=== PATIENT | female | born 1940 | race Caucasian/White ===

== ENCOUNTER 2017-05-06 01:16 | Emergency (ER) | payer OTHER ==
[2017-05-06] MEDS: SOD CHLORIDE 0.9% 500 ML IV (01:45)
[2017-05-06] MEDS: morphine 2 MG INJ IV (01:45)
[2017-05-06] MEDS: ONDANSETRON 4 MG INJ IV (01:46)
[2017-05-06 02:12] LABS: ADD MAN DIFF? NO
[2017-05-06 02:15] LABS: BASOPHILS % 0.3 % (0.0-2.0); EOSINOPHILS % 0.1 % (0.0-7.0); HEMATOCRIT 35.2 % (37.0-47.0); HEMOGLOBIN 12.7 g/dl (12.0-16.0); LYMPHOCYTES # 1.5 10^3/ul (0.8-2.9); MEAN CORPUSCULAR HEMOGLOBIN 34.5 pg (29.0-33.0); MEAN CORPUSCULAR HGB CONC 36.1 g/dl (32.0-37.0); MEAN CORPUSCULAR VOLUME 95.7 fl (82.0-101.0); MEAN PLATELET VOLUME 10.9 fl (7.4-10.4); MONOCYTE # 0.7 10^3/ul (0.3-0.9); MONOCYTES % 9.9 % (0.0-11.0); NEUTROPHIL # 4.8 10^3/ul (1.6-7.5); NEUTROPHILS % 68.3 % (39.0-77.0); NUCLEATED RED BLOOD CELLS% 0.3 /100WBC (0.0-0.0); PLATELET COUNT 133 10^3/UL (140-415); RED BLOOD COUNT 3.68 10^6/ul (4.20-5.40); RED CELL DISTRIBUTION WIDTH 13.2 % (11.5-14.5)
[2017-05-06 03:24] LABS: ALANINE AMINOTRANSFERASE 38 IU/L (13-69); ALBUMIN 4.1 g/dl (3.3-4.9); ALBUMIN/GLOBULIN RATIO 1.36; ALKALINE PHOSPHATASE 70 IU/L (42-121); ANION GAP 19 (8-16); ASPARTATE AMINO TRANSFERASE 33 IU/L (15-46); BILIRUBIN,INDIRECT 1.5 mg/dl (0-1.1); BILIRUBIN,TOTAL 1.5 mg/dl (0.2-1.3); BLOOD UREA NITROGEN 6 mg/dl (7-20); CALCIUM 8.5 mg/dl (8.4-10.2); CARBON DIOXIDE 18 mmol/L (21-31); CHLORIDE 95 mmol/L (97-110); CREATININE 0.79 mg/dl (0.44-1.00); GLUCOSE 172 mg/dl (70-220); LIPASE 69 U/L (23-300); POTASSIUM 4.4 mmol/L (3.5-5.1); SODIUM 128 mmol/L (135-144); TOTAL PROTEIN 7.1 g/dl (6.1-8.1)
[2017-05-06 03:34] LABS: TROPONIN-I 0.031 ng/ml (0.00-0.12)
[2017-05-06 04:44] LABS: ADD UMIC YES; UR ASCORBIC ACID NEGATIVE (NEGATIVE); UR BILIRUBIN (Dip) NEGATIVE (NEGATIVE); UR BLOOD (Dip) 2+ mg/dL (NEGATIVE); UR CLARITY SLIGHTLY CLOUDY (CLEAR); UR COLOR YELLOW (YELLOW); UR GLUCOSE (Dip) 1+ mg/dL (NEGATIVE); UR HYALINE CAST FEW /HPF (NONE SEEN); UR KETONES (Dip) TRACE mg/dL (NEGATIVE); UR LEUKOCYTE ESTERASE (Dip) NEGATIVE Leu/ul (NEGATIVE); UR MUCUS FEW /HPF (NONE SEEN); UR NITRITE (Dip) NEGATIVE (NEGATIVE); UR RBC 25 /HPF (0-5); UR SPECIFIC GRAVITY (Dip) 1.017 (1.003-1.030); UR TOTAL PROTEIN (Dip) 2+ mg/dl (NEGATIVE); UR UROBILINOGEN (Dip) 1+ mg/dL (NEGATIVE); UR WBC 1 /HPF (0-5)
[2017-05-06] MEDS: DILTIAZEM 25 MG INJ IV (06:55)
== END 2017-05-06 08:39 | disposition home or self-care (01) ==
LOC: E/R 01:16
DX: R10.84 Generalized abdominal pain (principal); E87.1 Hypo-osmolality and hyponatremia; I10 Essential (primary) hypertension; E11.9 Type 2 diabetes mellitus without complications; Z79.84 Long term (current) use of oral hypoglycemic drugs
CPT/HCPCS: 36415; 71045; 74176; 80053; 81001; 83690; 84484; 85025; 93005; 96374; 96375; 99285-25

== ENCOUNTER 2017-05-07 18:38 | Inpatient (IN) | payer OTHER ==
[2017-05-07 19:10] LABS: ADD MAN DIFF? NO
[2017-05-07] MEDS: DILTIAZEM-D5W 125MG/125ML DRIP 125 ML IV ×2 (19:10→23:42)
[2017-05-07] MEDS: DILTIAZEM 25 MG INJ IV (19:15)
[2017-05-07 19:16] LABS: BASOPHILS % 0.2 % (0.0-2.0); EOSINOPHILS % 0.3 % (0.0-7.0); HEMOGLOBIN 11.8 g/dl (12.0-16.0); LYMPHOCYTES # 1.4 10^3/ul (0.8-2.9); LYMPHOCYTES % 21.3 % (15.0-51.0); MEAN CORPUSCULAR HEMOGLOBIN 33.8 pg (29.0-33.0); MEAN CORPUSCULAR HGB CONC 35.8 g/dl (32.0-37.0); MEAN CORPUSCULAR VOLUME 94.6 fl (82.0-101.0); MEAN PLATELET VOLUME 10.9 fl (7.4-10.4); MONOCYTE # 0.7 10^3/ul (0.3-0.9); MONOCYTES % 10.9 % (0.0-11.0); NEUTROPHIL # 4.3 10^3/ul (1.6-7.5); NEUTROPHILS % 66.8 % (39.0-77.0); NUCLEATED RED BLOOD CELLS% 0.5 /100WBC (0.0-0.0); PLATELET COUNT 127 10^3/UL (140-415); RED BLOOD COUNT 3.49 10^6/ul (4.20-5.40); RED CELL DISTRIBUTION WIDTH 12.8 % (11.5-14.5)
[2017-05-07 19:16] LABS: WHITE BLOOD COUNT 6.4 10^3/ul (4.8-10.8)
[2017-05-07] MEDS: FUROSEMIDE 40 MG INJ IV (19:16)
[2017-05-07 19:33] LABS: ANION GAP 16 (8-16); BLOOD UREA NITROGEN 10 mg/dl (7-20); CALCIUM 8.3 mg/dl (8.4-10.2); CARBON DIOXIDE 20 mmol/L (21-31); CHLORIDE 87 mmol/L (97-110); CREATININE 0.73 mg/dl (0.44-1.00); GLUCOSE 170 mg/dl (70-220); POTASSIUM 3.7 mmol/L (3.5-5.1)
[2017-05-07 19:37] LABS: SODIUM 119 mmol/L (135-144)
[2017-05-07 19:44] LABS: B-TYPE NATRIURETIC PEPTIDE 11900 PG/ML (0-450); TROPONIN-I 0.017 ng/ml (0.00-0.12)
[2017-05-07] MEDS ORDERED: ONDANSETRON 4 MG INJ IV (21:00)
[2017-05-07] MEDS ORDERED: ONDANSETRON 4 MG TAB PO (21:00)
[2017-05-07] MEDS ORDERED: ACETAMINOPHEN 650MG/20.3ML CUP PO (21:00)
[2017-05-07] MEDS: NACL 3% 500 ML IV (21:50)
[2017-05-07] MEDS ORDERED: DEXTROSE 50% 50 ML SYRINGE IV ×2 (22:00)
[2017-05-07] MEDS ORDERED: GLUCOSE GEL 15 GRAM TUBE BUCCAL (22:00)
[2017-05-07] MEDS ORDERED: GLUCOSE GEL 15 GRAM TUBE PO ×2 (22:00)
[2017-05-07] MEDS ORDERED: GLUCAGON 1 MG INJ IM (22:00)
[2017-05-07] MEDS: INSULIN ASPART [NOVOLOG] 3 ML PEN SC (22:29)
[2017-05-07 23:23] LABS: ALBUMIN 3.9 g/dl (3.3-4.9); HEMOGLOBIN A1C 6.1 % (0-5.9)
[2017-05-07 23:24] LABS: ANION GAP 12 (8-16); BLOOD UREA NITROGEN 10 mg/dl (7-20); CALCIUM 8.6 mg/dl (8.4-10.2); CARBON DIOXIDE 27 mmol/L (21-31); CHLORIDE 85 mmol/L (97-110); CREATININE 0.71 mg/dl (0.44-1.00); GLUCOSE 144 mg/dl (70-220); POTASSIUM 3.1 mmol/L (3.5-5.1); SODIUM 121 mmol/L (135-144)
[2017-05-07 23:28] LABS: OSMOLALITY 257 mOsm/kg (280-295)
[2017-05-07] MEDS: POTASSIUM CHLORIDE (SR) 20 MEQ TAB PO (23:42)
[2017-05-08 00:21] LABS: ANION GAP 11 (8-16); BLOOD UREA NITROGEN 10 mg/dl (7-20); CALCIUM 8.6 mg/dl (8.4-10.2); CARBON DIOXIDE 29 mmol/L (21-31); CHLORIDE 85 mmol/L (97-110); CREATININE 0.71 mg/dl (0.44-1.00); GLUCOSE 138 mg/dl (70-220); SODIUM 122 mmol/L (135-144)
[2017-05-08] MEDS: ACCU-CHEK XX (01:07)
[2017-05-08 03:16] LABS: ANION GAP 11 (8-16); BLOOD UREA NITROGEN 10 mg/dl (7-20); CALCIUM 8.2 mg/dl (8.4-10.2); CARBON DIOXIDE 31 mmol/L (21-31); CHLORIDE 87 mmol/L (97-110); CREATININE 0.68 mg/dl (0.44-1.00); GLUCOSE 126 mg/dl (70-220); SODIUM 125 mmol/L (135-144)
[2017-05-08 03:45] LABS: CREATINE KINASE 85 IU/L (23-200)
[2017-05-08 03:59] LABS: CK INDEX 2.1; CK-MB 1.75 ng/ml (0.0-2.4); TROPONIN-I 0.038 ng/ml (0.00-0.12)
[2017-05-08 04:39] LABS: ADD UMIC YES; UR ASCORBIC ACID NEGATIVE (NEGATIVE); UR BACTERIA FEW /HPF (NONE SEEN); UR BILIRUBIN (Dip) NEGATIVE (NEGATIVE); UR BLOOD (Dip) 2+ mg/dL (NEGATIVE); UR CLARITY CLEAR (CLEAR); UR COLOR YELLOW (YELLOW); UR GLUCOSE (Dip) NEGATIVE (NEGATIVE); UR KETONES (Dip) NEGATIVE (NEGATIVE); UR LEUKOCYTE ESTERASE (Dip) NEGATIVE Leu/ul (NEGATIVE); UR NITRITE (Dip) NEGATIVE (NEGATIVE); UR RBC 4 /HPF (0-5); UR SPECIFIC GRAVITY (Dip) 1.006 (1.003-1.030); UR TOTAL PROTEIN (Dip) NEGATIVE (NEGATIVE); UR UROBILINOGEN (Dip) 1+ mg/dL (NEGATIVE); UR WBC 4 /HPF (0-5)
[2017-05-08 05:34] LABS: SODIUM,URINE RANDOM 52 mmol/L (30-90)
[2017-05-08 05:52] LABS: OSMOLALITY,URINE 283 mOsm/kg (250-1200)
[2017-05-08 06:15] LABS: ANION GAP 10 (8-16); BLOOD UREA NITROGEN 9 mg/dl (7-20); CALCIUM 8.2 mg/dl (8.4-10.2); CARBON DIOXIDE 29 mmol/L (21-31); CHLORIDE 88 mmol/L (97-110); CREATININE 0.69 mg/dl (0.44-1.00); GLUCOSE 135 mg/dl (70-220); POTASSIUM 3.5 mmol/L (3.5-5.1); SODIUM 123 mmol/L (135-144)
[2017-05-08 07:00] LABS: ANION GAP 9 (8-16); BLOOD UREA NITROGEN 9 mg/dl (7-20); CALCIUM 8.1 mg/dl (8.4-10.2); CARBON DIOXIDE 30 mmol/L (21-31); CHLORIDE 89 mmol/L (97-110); GLUCOSE 128 mg/dl (70-220); POTASSIUM 3.8 mmol/L (3.5-5.1); SODIUM 124 mmol/L (135-144)
[2017-05-08] MEDS: INSULIN ASPART [NOVOLOG] 3 ML PEN SC ×4 (08:00→23:34)
[2017-05-08 08:12] LABS: CREATINE KINASE 58 IU/L (23-200)
[2017-05-08 08:15] LABS: ANION GAP 6 (8-16); BLOOD UREA NITROGEN 9 mg/dl (7-20); CALCIUM 8.3 mg/dl (8.4-10.2); CARBON DIOXIDE 33 mmol/L (21-31); CHLORIDE 89 mmol/L (97-110); CREATININE 0.74 mg/dl (0.44-1.00); GLUCOSE 127 mg/dl (70-220); POTASSIUM 3.7 mmol/L (3.5-5.1); SODIUM 124 mmol/L (135-144)
[2017-05-08 08:22] LABS: CK INDEX 2.3; CK-MB 1.34 ng/ml (0.0-2.4); TROPONIN-I 0.031 ng/ml (0.00-0.12)
[2017-05-08 09:46] LABS: ANION GAP 10 (8-16); BLOOD UREA NITROGEN 9 mg/dl (7-20); CALCIUM 8.1 mg/dl (8.4-10.2); CARBON DIOXIDE 31 mmol/L (21-31); CHLORIDE 89 mmol/L (97-110); CREATININE 0.75 mg/dl (0.44-1.00); GLUCOSE 128 mg/dl (70-220); POTASSIUM 3.6 mmol/L (3.5-5.1); SODIUM 126 mmol/L (135-144)
[2017-05-08] MEDS: APIXABAN 5 MG TABLET PO ×2 (09:56→23:18)
[2017-05-08] MEDS: METOPROLOL 25 MG TAB PO ×2 (09:56→16:36)
[2017-05-08] MEDS: DIGOXIN 0.125 MG TAB PO (13:50)
[2017-05-08 14:06] LABS: ANION GAP 10 (8-16); BLOOD UREA NITROGEN 9 mg/dl (7-20); CALCIUM 8.2 mg/dl (8.4-10.2); CARBON DIOXIDE 30 mmol/L (21-31); CHLORIDE 88 mmol/L (97-110); CREATININE 0.72 mg/dl (0.44-1.00); GLUCOSE 138 mg/dl (70-220); POTASSIUM 3.7 mmol/L (3.5-5.1); SODIUM 124 mmol/L (135-144)
[2017-05-08 15:54] LABS: ANION GAP 9 (8-16); BLOOD UREA NITROGEN 9 mg/dl (7-20); CALCIUM 8.3 mg/dl (8.4-10.2); CARBON DIOXIDE 31 mmol/L (21-31); CHLORIDE 88 mmol/L (97-110); CREATININE 0.71 mg/dl (0.44-1.00); GLUCOSE 129 mg/dl (70-220); POTASSIUM 3.7 mmol/L (3.5-5.1); SODIUM 124 mmol/L (135-144)
[2017-05-08] MEDS: POTASSIUM CHLORIDE (SR) 20 MEQ TAB PO (16:35)
[2017-05-08] MEDS: FUROSEMIDE 40 MG INJ IV (16:36)
[2017-05-08 20:21] LABS: ANION GAP 11 (8-16); BLOOD UREA NITROGEN 9 mg/dl (7-20); CALCIUM 9.1 mg/dl (8.4-10.2); CARBON DIOXIDE 34 mmol/L (21-31); CHLORIDE 85 mmol/L (97-110); CREATININE 0.84 mg/dl (0.44-1.00); GLUCOSE 107 mg/dl (70-220); POTASSIUM 3.9 mmol/L (3.5-5.1); SODIUM 126 mmol/L (135-144)
[2017-05-08] MEDS: METOPROLOL 50 MG TAB PO (23:19)
[2017-05-09] MEDS: ACCU-CHEK XX (02:00)
[2017-05-09 06:35] LABS: ADD MAN DIFF? NO
[2017-05-09 06:40] LABS: BASOPHILS % 0.4 % (0.0-2.0); EOSINOPHILS # 0.1 10^3/ul (0.0-0.5); EOSINOPHILS % 1.9 % (0.0-7.0); HEMATOCRIT 32.7 % (37.0-47.0); HEMOGLOBIN 11.5 g/dl (12.0-16.0); LYMPHOCYTES # 1.6 10^3/ul (0.8-2.9); LYMPHOCYTES % 28.9 % (15.0-51.0); MEAN CORPUSCULAR HGB CONC 35.2 g/dl (32.0-37.0); MEAN CORPUSCULAR VOLUME 96.7 fl (82.0-101.0); MEAN PLATELET VOLUME 9.9 fl (7.4-10.4); MONOCYTE # 0.7 10^3/ul (0.3-0.9); NEUTROPHILS % 55.4 % (39.0-77.0); PLATELET COUNT 123 10^3/UL (140-415); RED BLOOD COUNT 3.38 10^6/ul (4.20-5.40); RED CELL DISTRIBUTION WIDTH 13.2 % (11.5-14.5)
[2017-05-09 06:40] LABS: WHITE BLOOD COUNT 5.4 10^3/ul (4.8-10.8)
[2017-05-09 07:09] LABS: ALBUMIN 3.2 g/dl (3.3-4.9); ANION GAP 7 (8-16); BLOOD UREA NITROGEN 8 mg/dl (7-20); CALCIUM 8.6 mg/dl (8.4-10.2); CARBON DIOXIDE 33 mmol/L (21-31); CHLORIDE 91 mmol/L (97-110); CREATININE 0.74 mg/dl (0.44-1.00); GLUCOSE 110 mg/dl (70-220); MAGNESIUM 1.7 mg/dl (1.7-2.5); PHOSPHORUS 2.6 mg/dl (2.5-4.9); POTASSIUM 3.6 mmol/L (3.5-5.1); SODIUM 127 mmol/L (135-144)
[2017-05-09] MEDS: INSULIN ASPART [NOVOLOG] 3 ML PEN SC ×4 (08:40→21:00)
[2017-05-09] MEDS: METOPROLOL 50 MG TAB PO ×2 (09:42→21:26)
[2017-05-09] MEDS: APIXABAN 5 MG TABLET PO ×2 (09:42→21:26)
[2017-05-09] MEDS: DIGOXIN 0.125 MG TAB PO (11:54)
[2017-05-09] MEDS: POTASSIUM CHLORIDE (SR) 20 MEQ TAB PO (11:54)
[2017-05-09 16:53] LABS: ANION GAP 10 (8-16); BLOOD UREA NITROGEN 13 mg/dl (7-20); CALCIUM 9.2 mg/dl (8.4-10.2); CARBON DIOXIDE 31 mmol/L (21-31); CHLORIDE 89 mmol/L (97-110); CREATININE 0.79 mg/dl (0.44-1.00); GLUCOSE 143 mg/dl (70-220); POTASSIUM 4.2 mmol/L (3.5-5.1); SODIUM 126 mmol/L (135-144); URIC ACID 4.5 mg/dl (3.1-7.9)
[2017-05-09] MEDS: FUROSEMIDE 20 MG TAB PO (17:59)
[2017-05-10] MEDS: ACCU-CHEK XX (02:00)
[2017-05-10 06:59] LABS: ADD MAN DIFF? NO
[2017-05-10 07:03] LABS: BASOPHILS % 0.3 % (0.0-2.0); EOSINOPHILS # 0.1 10^3/ul (0.0-0.5); EOSINOPHILS % 1.8 % (0.0-7.0); HEMATOCRIT 34.6 % (37.0-47.0); HEMOGLOBIN 11.9 g/dl (12.0-16.0); LYMPHOCYTES # 1.6 10^3/ul (0.8-2.9); LYMPHOCYTES % 26.1 % (15.0-51.0); MEAN CORPUSCULAR HGB CONC 34.4 g/dl (32.0-37.0); MEAN CORPUSCULAR VOLUME 98.9 fl (82.0-101.0); MEAN PLATELET VOLUME 9.9 fl (7.4-10.4); MONOCYTES % 16.2 % (0.0-11.0); NEUTROPHIL # 3.3 10^3/ul (1.6-7.5); NEUTROPHILS % 55.1 % (39.0-77.0); PLATELET COUNT 140 10^3/UL (140-415); RED CELL DISTRIBUTION WIDTH 13.8 % (11.5-14.5)
[2017-05-10 07:31] LABS: ALBUMIN 3.4 g/dl (3.3-4.9); ANION GAP 10 (8-16); BLOOD UREA NITROGEN 11 mg/dl (7-20); CALCIUM 8.9 mg/dl (8.4-10.2); CARBON DIOXIDE 32 mmol/L (21-31); CHLORIDE 93 mmol/L (97-110); CREATININE 0.84 mg/dl (0.44-1.00); GLUCOSE 152 mg/dl (70-220); MAGNESIUM 1.7 mg/dl (1.7-2.5); PHOSPHORUS 3.2 mg/dl (2.5-4.9); SODIUM 131 mmol/L (135-144)
[2017-05-10] MEDS: INSULIN ASPART [NOVOLOG] 3 ML PEN SC ×3 (07:55→17:41)
[2017-05-10] MEDS: FUROSEMIDE 20 MG TAB PO (08:41)
[2017-05-10] MEDS: POTASSIUM CHLORIDE (SR) 20 MEQ TAB PO (08:42)
[2017-05-10] MEDS: APIXABAN 5 MG TABLET PO (08:42)
[2017-05-10] MEDS: METOPROLOL 50 MG TAB PO (08:42)
[2017-05-10 10:29] LABS: SODIUM,URINE RANDOM 52 mmol/L (30-90)
[2017-05-10 10:29] LABS: ADD UMIC YES; CREATININE,URINE RANDOM 42.25 mg/dl (20-320); UR ASCORBIC ACID NEGATIVE (NEGATIVE); UR BACTERIA FEW /HPF (NONE SEEN); UR BILIRUBIN (Dip) NEGATIVE (NEGATIVE); UR BLOOD (Dip) 2+ mg/dL (NEGATIVE); UR CLARITY CLEAR (CLEAR); UR COLOR YELLOW (YELLOW); UR GLUCOSE (Dip) NEGATIVE (NEGATIVE); UR KETONES (Dip) NEGATIVE (NEGATIVE); UR LEUKOCYTE ESTERASE (Dip) 3+ Leu/ul (NEGATIVE); UR NITRITE (Dip) NEGATIVE (NEGATIVE); UR RBC 2 /HPF (0-5); UR SPECIFIC GRAVITY (Dip) 1.006 (1.003-1.030); UR SQUAMOUS EPITHELIAL CELL FEW /HPF (FEW); UR TOTAL PROTEIN (Dip) NEGATIVE (NEGATIVE); UR UROBILINOGEN (Dip) 2+ mg/dL (NEGATIVE); UR WBC 38 /HPF (0-5)
[2017-05-10 10:37] LABS: OSMOLALITY,URINE 284 mOsm/kg (250-1200)
[2017-05-10] MEDS: MAGNESIUM SULFATE 2 GM/50 ML 50 ML IVPB (12:44)
[2017-05-10] MEDS: DIGOXIN 0.125 MG TAB PO (12:45)
[2017-05-13 15:06] LABS: CREATININE, RANDOM URINE 50 mg/dL (20-320); MICROALBUMIN 0.6 mg/dL; MICROALBUMIN/CREATININE RATIO 12 (<30)
== END 2017-05-10 18:25 | disposition home or self-care (01) | DRG 640 ==
LOC: ICU 20:44 → E/R 18:38 → TEL 05-08 21:10
DX: E87.1 Hypo-osmolality and hyponatremia (principal); I50.33 Acute on chronic diastolic (congestive) heart failure; I48.2 Chronic atrial fibrillation; E11.9 Type 2 diabetes mellitus without complications; D64.9 Anemia, unspecified; I48.91 Unspecified atrial fibrillation; I11.0 Hypertensive heart disease with heart failure; Z79.84 Long term (current) use of oral hypoglycemic drugs; Z79.4 Long term (current) use of insulin; Z79.02 Long term (current) use of antithrombotics/antiplatelets
CPT/HCPCS: 36415; 71045; 80048; 80069; 81001; 81003; 82040; 82043; 82533; 82550; 82553; 82962; 83036; 83735; 83880; 83930; 83935; 84155; 84300; 84443; 84484; 84560; 85025; 87081; 93005; 93306; 96365; 96366; 96367; 96375; 99291-25

== ENCOUNTER 2017-07-02 07:06 | Inpatient (IN) | payer OTHER ==
[2017-07-02] MEDS: METOPROLOL 5 MG INJ IV ×2 (07:32→08:06)
[2017-07-02] MEDS: ONDANSETRON 4 MG INJ IV ×2 (07:32→08:01)
[2017-07-02] MEDS: morphine 4 MG/ML VIAL IV (07:33)
[2017-07-02] MEDS: METOPROLOL 25 MG TAB PO (07:33)
[2017-07-02] MEDS: SOD CHLORIDE 0.9% 500 ML IV (07:38)
[2017-07-02 07:58] LABS: ADD MAN DIFF? NO
[2017-07-02 08:01] LABS: WHITE BLOOD COUNT 5.4 10^3/ul (4.8-10.8)
[2017-07-02 08:01] LABS: BASOPHILS % 0.6 % (0.0-2.0); EOSINOPHILS % 0.2 % (0.0-7.0); HEMATOCRIT 39.4 % (37.0-47.0); HEMOGLOBIN 13.4 g/dl (12.0-16.0); LYMPHOCYTES # 1.3 10^3/ul (0.8-2.9); LYMPHOCYTES % 24.8 % (15.0-51.0); MEAN CORPUSCULAR HEMOGLOBIN 33.8 pg (29.0-33.0); MEAN CORPUSCULAR VOLUME 99.5 fl (82.0-101.0); MEAN PLATELET VOLUME 11.6 fl (7.4-10.4); MONOCYTE # 0.4 10^3/ul (0.3-0.9); MONOCYTES % 7.8 % (0.0-11.0); NEUTROPHIL # 3.6 10^3/ul (1.6-7.5); NEUTROPHILS % 66.2 % (39.0-77.0); PLATELET COUNT 164 10^3/UL (140-415); RED BLOOD COUNT 3.96 10^6/ul (4.20-5.40); RED CELL DISTRIBUTION WIDTH 14.3 % (11.5-14.5)
[2017-07-02 08:07] LABS: ADD UMIC YES; UR ASCORBIC ACID NEGATIVE (NEGATIVE); UR BACTERIA FEW /HPF (NONE SEEN); UR BILIRUBIN (Dip) NEGATIVE (NEGATIVE); UR BLOOD (Dip) 1+ mg/dL (NEGATIVE); UR CLARITY CLEAR (CLEAR); UR COLOR COLORLESS (YELLOW); UR GLUCOSE (Dip) NEGATIVE (NEGATIVE); UR KETONES (Dip) NEGATIVE (NEGATIVE); UR LEUKOCYTE ESTERASE (Dip) NEGATIVE Leu/ul (NEGATIVE); UR NITRITE (Dip) NEGATIVE (NEGATIVE); UR RBC 1 /HPF (0-5); UR TOTAL PROTEIN (Dip) NEGATIVE (NEGATIVE); UR UROBILINOGEN (Dip) NEGATIVE (NEGATIVE); UR WBC 0 /HPF (0-5)
[2017-07-02] MEDS: LORAZEPAM 2 MG INJ IV (08:15)
[2017-07-02 08:23] LABS: INR 1.76; PROTIME 20.9 Sec (11.9-14.9); PT RATIO 1.6
[2017-07-02 08:24] LABS: PARTIAL THROMBOPLASTIN TIME 37.1 Sec (25.0-35.0)
[2017-07-02 08:44] LABS: ALANINE AMINOTRANSFERASE 30 IU/L (13-69); ALBUMIN 3.8 g/dl (3.3-4.9); ALBUMIN/GLOBULIN RATIO 1.31; ALKALINE PHOSPHATASE 63 IU/L (42-121); ANION GAP 20 (8-16); ASPARTATE AMINO TRANSFERASE 31 IU/L (15-46); BILIRUBIN,INDIRECT 1.4 mg/dl (0-1.1); BILIRUBIN,TOTAL 1.4 mg/dl (0.2-1.3); BLOOD UREA NITROGEN 6 mg/dl (7-20); CALCIUM 8.6 mg/dl (8.4-10.2); CARBON DIOXIDE 21 mmol/L (21-31); CHLORIDE 102 mmol/L (97-110); CREATININE 0.89 mg/dl (0.44-1.00); GLUCOSE 143 mg/dl (70-220); LIPASE 64 U/L (23-300); POTASSIUM 4.2 mmol/L (3.5-5.1); SODIUM 139 mmol/L (135-144); TOTAL PROTEIN 6.7 g/dl (6.1-8.1)
[2017-07-02 08:54] LABS: DIGOXIN < 0.4 ng/ml (1.0-2.0)
[2017-07-02 08:56] LABS: TROPONIN-I < 0.012 ng/ml (0.00-0.12)
[2017-07-02] MEDS: DILTIAZEM-D5W 125MG/125ML DRIP 125 ML IV ×2 (09:08→09:15)
[2017-07-02] MEDS ORDERED: DILTIAZEM-D5W 125MG/125ML DRIP 125 ML IV (10:00)
[2017-07-02] MEDS ORDERED: NACL 0.9% 3 ML SYG IV (10:00)
[2017-07-02] MEDS ORDERED: morphine 2 MG INJ IV (10:00)
[2017-07-02] MEDS ORDERED: ONDANSETRON 4 MG INJ IV (10:00)
[2017-07-02] MEDS ORDERED: ERGOCALCIFEROL 50,000 UNIT CAP PO (10:00)
[2017-07-02] MEDS ORDERED: ACETAMINOPHEN 325 MG TAB PO (10:00)
[2017-07-02] MEDS: FUROSEMIDE 40 MG INJ IV (10:00)
[2017-07-02] MEDS ORDERED: GLUCOSE GEL 15 GRAM TUBE BUCCAL (11:00)
[2017-07-02] MEDS ORDERED: DEXTROSE 50% 50 ML SYRINGE IV ×2 (11:00)
[2017-07-02] MEDS ORDERED: GLUCOSE GEL 15 GRAM TUBE PO ×2 (11:00)
[2017-07-02] MEDS ORDERED: MAGNESIUM HYDROXIDE 30ML CUP PO (11:00)
[2017-07-02] MEDS ORDERED: GLUCAGON 1 MG INJ IM (11:00)
[2017-07-02] MEDS: INSULIN ASPART [NOVOLOG] 3 ML PEN SC ×3 (11:44→20:50)
[2017-07-02] MEDS: METOCLOPRAMIDE 10 MG INJ IV ×3 (11:59→23:54)
[2017-07-02 12:24] LABS: CREATINE KINASE 102 IU/L (23-200)
[2017-07-02 13:22] LABS: CK INDEX 0.9; CK-MB 0.91 ng/ml (0.0-2.4)
[2017-07-02 13:25] LABS: TROPONIN-I < 0.012 ng/ml (0.00-0.12)
[2017-07-02 16:27] LABS: CREATINE KINASE 81 IU/L (23-200)
[2017-07-02 16:38] LABS: CK-MB 0.83 ng/ml (0.0-2.4); TROPONIN-I < 0.012 ng/ml (0.00-0.12)
[2017-07-02] MEDS: PANTOPRAZOLE 40 MG INJ IV (17:43)
[2017-07-02] MEDS: DOCUSATE SODIUM 100 MG CAP PO (20:47)
[2017-07-02] MEDS: APIXABAN 5 MG TABLET PO (20:48)
[2017-07-02] MEDS: ATORVASTATIN 10 MG TAB PO (20:48)
[2017-07-02] MEDS: METOPROLOL (XL) 25 MG TAB PO (20:49)
[2017-07-02] MEDS ORDERED: FAMOTIDINE 20 MG TAB PO (21:00)
[2017-07-03] MEDS: ACCU-CHEK XX (02:00)
[2017-07-03] MEDS: METOCLOPRAMIDE 10 MG INJ IV ×2 (06:02→12:09)
[2017-07-03] MEDS: PANTOPRAZOLE 40 MG INJ IV (06:03)
[2017-07-03 06:07] LABS: ADD MAN DIFF? NO
[2017-07-03 06:15] LABS: HEMATOCRIT 33.2 % (37.0-47.0); HEMOGLOBIN 11.4 g/dl (12.0-16.0); LYMPHOCYTES # 1.1 10^3/ul (0.8-2.9); LYMPHOCYTES % 18.2 % (15.0-51.0); MEAN CORPUSCULAR HEMOGLOBIN 34.3 pg (29.0-33.0); MEAN CORPUSCULAR HGB CONC 34.3 g/dl (32.0-37.0); MEAN PLATELET VOLUME 10.3 fl (7.4-10.4); MONOCYTE # 0.8 10^3/ul (0.3-0.9); MONOCYTES % 13.7 % (0.0-11.0); NEUTROPHILS % 67.8 % (39.0-77.0); PLATELET COUNT 112 10^3/UL (140-415); RED BLOOD COUNT 3.32 10^6/ul (4.20-5.40); RED CELL DISTRIBUTION WIDTH 13.5 % (11.5-14.5)
[2017-07-03 06:15] LABS: WHITE BLOOD COUNT 5.8 10^3/ul (4.8-10.8)
[2017-07-03 06:45] LABS: ALANINE AMINOTRANSFERASE 28 IU/L (13-69); ALBUMIN 3.2 g/dl (3.3-4.9); ALBUMIN/GLOBULIN RATIO 1.14; ALKALINE PHOSPHATASE 49 IU/L (42-121); ANION GAP 15 (8-16); ASPARTATE AMINO TRANSFERASE 21 IU/L (15-46); BLOOD UREA NITROGEN 12 mg/dl (7-20); CALCIUM 8.5 mg/dl (8.4-10.2); CARBON DIOXIDE 26 mmol/L (21-31); CHLORIDE 99 mmol/L (97-110); CHOL/HDL RATIO 1.9 RATIO; CHOLESTEROL 144 mg/dl (100-200); CREATININE 0.97 mg/dl (0.44-1.00); GLUCOSE 145 mg/dl (70-220); HDL CHOLESTEROL 73 mg/dl (33-92); LDL CHOLESTEROL,CALCULATED 57 mg/dl; MAGNESIUM 1.8 mg/dl (1.7-2.5); PHOSPHORUS 3.1 mg/dl (2.5-4.9); POTASSIUM 3.8 mmol/L (3.5-5.1); SODIUM 136 mmol/L (135-144); TRIGLYCERIDES 71 mg/dl (0-149)
[2017-07-03 08:26] LABS: HEMOGLOBIN A1C 5.3 % (0-5.9)
[2017-07-03] MEDS: INSULIN GLARGINE [LANtus] 3 ML PEN SC (08:41)
[2017-07-03] MEDS: INSULIN ASPART [NOVOLOG] 3 ML PEN SC ×4 (08:42→20:24)
[2017-07-03] MEDS: DOCUSATE SODIUM 100 MG CAP PO ×2 (09:21→20:23)
[2017-07-03] MEDS: APIXABAN 5 MG TABLET PO ×2 (09:22→20:22)
[2017-07-03] MEDS: DIGOXIN 0.25 MG TAB PO (09:23)
[2017-07-03] MEDS: LOSARTAN 50 MG TAB PO (09:23)
[2017-07-03] MEDS: METOPROLOL (XL) 25 MG TAB PO ×2 (09:23→20:24)
[2017-07-03] MEDS: DILTIAZEM 25 MG INJ IV (10:24)
[2017-07-03] MEDS: FUROSEMIDE 20 MG INJ IV ×2 (12:10→17:10)
[2017-07-03] MEDS: DILTIAZEM 60 MG TAB PO ×3 (12:18→22:47)
[2017-07-03] MEDS ORDERED: DILTIAZEM 60 MG TAB PO (14:00)
[2017-07-03] MEDS: ATORVASTATIN 10 MG TAB PO (20:23)
[2017-07-04] MEDS: ACCU-CHEK XX (02:00)
[2017-07-04] MEDS: DILTIAZEM 60 MG TAB PO ×2 (05:44→14:00)
[2017-07-04] MEDS: FUROSEMIDE 20 MG INJ IV ×2 (05:45→18:37)
[2017-07-04] MEDS: PANTOPRAZOLE (EC) 40 MG TAB PO (05:45)
[2017-07-04] MEDS: INSULIN ASPART [NOVOLOG] 3 ML PEN SC ×4 (08:25→21:00)
[2017-07-04] MEDS: INSULIN GLARGINE [LANtus] 3 ML PEN SC (08:31)
[2017-07-04] MEDS: DOCUSATE SODIUM 100 MG CAP PO ×2 (08:34→21:28)
[2017-07-04] MEDS: LOSARTAN 50 MG TAB PO (08:34)
[2017-07-04] MEDS: DIGOXIN 0.25 MG TAB PO (08:35)
[2017-07-04] MEDS: APIXABAN 5 MG TABLET PO ×2 (08:35)
[2017-07-04] MEDS: METOPROLOL (XL) 25 MG TAB PO ×2 (08:36→21:27)
[2017-07-04 08:42] LABS: ADD MAN DIFF? NO
[2017-07-04 08:50] LABS: WHITE BLOOD COUNT 7.2 10^3/ul (4.8-10.8)
[2017-07-04 08:50] LABS: BASOPHILS % 0.4 % (0.0-2.0); EOSINOPHILS % 0.3 % (0.0-7.0); HEMATOCRIT 39.5 % (37.0-47.0); HEMOGLOBIN 13.5 g/dl (12.0-16.0); LYMPHOCYTES # 1.4 10^3/ul (0.8-2.9); LYMPHOCYTES % 18.7 % (15.0-51.0); MEAN CORPUSCULAR HEMOGLOBIN 33.9 pg (29.0-33.0); MEAN CORPUSCULAR HGB CONC 34.2 g/dl (32.0-37.0); MEAN CORPUSCULAR VOLUME 99.2 fl (82.0-101.0); MEAN PLATELET VOLUME 10.1 fl (7.4-10.4); MONOCYTE # 0.7 10^3/ul (0.3-0.9); MONOCYTES % 10.3 % (0.0-11.0); NEUTROPHILS % 69.9 % (39.0-77.0); PLATELET COUNT 140 10^3/UL (140-415); RED BLOOD COUNT 3.98 10^6/ul (4.20-5.40); RED CELL DISTRIBUTION WIDTH 13.2 % (11.5-14.5)
[2017-07-04 09:07] LABS: MAGNESIUM 1.4 mg/dl (1.7-2.5)
[2017-07-04 09:07] LABS: ANION GAP 16 (8-16); BLOOD UREA NITROGEN 10 mg/dl (7-20); CARBON DIOXIDE 33 mmol/L (21-31); CHLORIDE 92 mmol/L (97-110); CREATININE 0.92 mg/dl (0.44-1.00); GLUCOSE 140 mg/dl (70-220); SODIUM 138 mmol/L (135-144)
[2017-07-04 09:11] LABS: POTASSIUM 2.9 mmol/L (3.5-5.1)
[2017-07-04] MEDS ORDERED: POTASSIUM CHLORIDE (SR) 20 MEQ TAB PO (10:33)
[2017-07-04] MEDS: POTASSIUM CHLORIDE (SR) 20 MEQ TAB PO ×2 (11:03→12:43)
[2017-07-04] MEDS: MAGNESIUM SULFATE 3 GM in DEXTROSE 5% 100 ML IVPB (11:39)
[2017-07-04] MEDS: ATORVASTATIN 10 MG TAB PO (21:28)
[2017-07-04] MEDS: DILTIAZEM (CD) 120 MG CAP PO (21:28)
[2017-07-05] MEDS: ACCU-CHEK XX (02:00)
[2017-07-05] MEDS: PANTOPRAZOLE (EC) 40 MG TAB PO (06:00)
[2017-07-05] MEDS: FUROSEMIDE 20 MG INJ IV (06:00)
[2017-07-05] MEDS: INSULIN ASPART [NOVOLOG] 3 ML PEN SC ×4 (07:55→20:49)
[2017-07-05 08:04] LABS: ANION GAP 13 (8-16); BLOOD UREA NITROGEN 9 mg/dl (7-20); CALCIUM 8.4 mg/dl (8.4-10.2); CARBON DIOXIDE 34 mmol/L (21-31); CHLORIDE 92 mmol/L (97-110); CREATININE 0.78 mg/dl (0.44-1.00); GLUCOSE 120 mg/dl (70-220); MAGNESIUM 1.6 mg/dl (1.7-2.5); POTASSIUM 3.5 mmol/L (3.5-5.1); SODIUM 135 mmol/L (135-144)
[2017-07-05] MEDS: INSULIN GLARGINE [LANtus] 3 ML PEN SC (08:55)
[2017-07-05] MEDS: DILTIAZEM (CD) 120 MG CAP PO (08:57)
[2017-07-05] MEDS: DOCUSATE SODIUM 100 MG CAP PO ×2 (08:57→20:38)
[2017-07-05] MEDS: LOSARTAN 50 MG TAB PO (08:57)
[2017-07-05] MEDS: METOPROLOL (XL) 25 MG TAB PO ×2 (08:58→20:40)
[2017-07-05] MEDS: APIXABAN 5 MG TABLET PO ×2 (08:58→20:39)
[2017-07-05] MEDS: DIGOXIN 0.25 MG TAB PO (08:58)
[2017-07-05] MEDS: POTASSIUM CHLORIDE (SR) 20 MEQ TAB PO (12:20)
[2017-07-05] MEDS: MAGNESIUM SULFATE 2 GM/50 ML 50 ML IVPB (14:46)
[2017-07-05] MEDS: POTASSIUM CHLORIDE (SR) 10 MEQ TAB PO (14:49)
[2017-07-05] MEDS: ATORVASTATIN 10 MG TAB PO (20:38)
[2017-07-06] MEDS: ACCU-CHEK XX (02:00)
[2017-07-06] MEDS ORDERED: FUROSEMIDE 40 MG TAB PO (06:00)
[2017-07-06] MEDS: FUROSEMIDE 20 MG TAB PO (06:12)
[2017-07-06] MEDS: PANTOPRAZOLE (EC) 40 MG TAB PO (06:15)
[2017-07-06 06:56] LABS: ANION GAP 11 (8-16); BLOOD UREA NITROGEN 10 mg/dl (7-20); CALCIUM 8.9 mg/dl (8.4-10.2); CARBON DIOXIDE 32 mmol/L (21-31); CHLORIDE 94 mmol/L (97-110); CREATININE 0.72 mg/dl (0.44-1.00); GLUCOSE 114 mg/dl (70-220); MAGNESIUM 1.9 mg/dl (1.7-2.5); SODIUM 133 mmol/L (135-144)
[2017-07-06] MEDS: INSULIN ASPART [NOVOLOG] 3 ML PEN SC ×2 (07:55→12:36)
[2017-07-06] MEDS: METOPROLOL (XL) 25 MG TAB PO (08:53)
[2017-07-06] MEDS: POTASSIUM CHLORIDE (SR) 10 MEQ TAB PO (08:53)
[2017-07-06] MEDS: LOSARTAN 50 MG TAB PO (08:54)
[2017-07-06] MEDS: APIXABAN 5 MG TABLET PO (08:54)
[2017-07-06] MEDS: DIGOXIN 0.25 MG TAB PO (08:54)
[2017-07-06] MEDS: DOCUSATE SODIUM 100 MG CAP PO (08:54)
[2017-07-06] MEDS: DILTIAZEM (CD) 180 MG CAP PO (08:55)
[2017-07-06] MEDS: INSULIN GLARGINE [LANtus] 3 ML PEN SC (09:07)
== END 2017-07-06 14:55 | disposition home or self-care (01) | DRG 308 ==
LOC: E/R 07:06 → TEL 08:50
PROVIDERS: Internal Medicine
DX: I48.91 Unspecified atrial fibrillation (principal); I50.33 Acute on chronic diastolic (congestive) heart failure; I11.0 Hypertensive heart disease with heart failure; A08.4 Viral intestinal infection, unspecified; E11.9 Type 2 diabetes mellitus without complications; E78.5 Hyperlipidemia, unspecified; E87.6 Hypokalemia; E83.42 Hypomagnesemia; Z79.84 Long term (current) use of oral hypoglycemic drugs; Z79.02 Long term (current) use of antithrombotics/antiplatelets
CPT/HCPCS: 36415; 71045; 71250; 74176; 76604; 80048; 80053; 80061; 80162; 81001; 82550; 82553; 82962; 83036; 83690; 83735; 84100; 84443; 84484; 85025; 85610; 85730; 93005; 96365; 96366; 96375; 96376; 99291-25

== ENCOUNTER 2018-03-17 13:54 | Inpatient (IN) | payer OTHER ==
[2018-03-17] MEDS: morphine 4 MG/ML VIAL IV ×2 (15:20→16:00)
[2018-03-17] MEDS: LIDOCAINE/MYLANTA 40 ML BTL PO (15:59)
[2018-03-17] MEDS: ONDANSETRON 4 MG INJ IV (16:00)
[2018-03-17] MEDS: BELLADONNA/PHENOBARBITAL TAB PO (16:00)
[2018-03-17] MEDS: SOD CHLORIDE 0.9% 1,000 ML IV (16:01)
[2018-03-17 16:07] LABS: ADD MAN DIFF? NO
[2018-03-17 16:18] LABS: WHITE BLOOD COUNT 7.8 10^3/ul (4.8-10.8)
[2018-03-17 16:18] LABS: BASOPHILS % 0.1 % (0.0-2.0); HEMATOCRIT 42.1 % (37.0-47.0); HEMOGLOBIN 14.3 g/dl (12.0-16.0); LYMPHOCYTES # 1.1 10^3/ul (0.8-2.9); LYMPHOCYTES % 13.8 % (15.0-51.0); MEAN CORPUSCULAR HEMOGLOBIN 32.7 pg (29.0-33.0); MEAN CORPUSCULAR VOLUME 96.3 fl (82.0-101.0); MEAN PLATELET VOLUME 10.3 fl (7.4-10.4); MONOCYTE # 0.3 10^3/ul (0.3-0.9); MONOCYTES % 4.2 % (0.0-11.0); NEUTROPHIL # 6.4 10^3/ul (1.6-7.5); NEUTROPHILS % 81.6 % (39.0-77.0); PLATELET COUNT 143 10^3/UL (140-415); RED BLOOD COUNT 4.37 10^6/ul (4.20-5.40); RED CELL DISTRIBUTION WIDTH 12.1 % (11.5-14.5)
[2018-03-17 16:36] LABS: ALANINE AMINOTRANSFERASE 16 IU/L (13-69); ALBUMIN 4.4 g/dl (3.3-4.9); ALBUMIN/GLOBULIN RATIO 1.33; ALKALINE PHOSPHATASE 80 IU/L (42-121); ANION GAP 14 (5-13); ASPARTATE AMINO TRANSFERASE 24 IU/L (15-46); BLOOD UREA NITROGEN 15 mg/dl (7-20); CALCIUM 9.6 mg/dl (8.4-10.2); CARBON DIOXIDE 28 mmol/L (21-31); CHLORIDE 96 mmol/L (97-110); GLUCOSE 149 mg/dl (70-220); LIPASE 175 U/L (23-300); POTASSIUM 3.8 mmol/L (3.5-5.1); SODIUM 138 mmol/L (135-144); TOTAL PROTEIN 7.7 g/dl (6.1-8.1)
[2018-03-17 16:38] LABS: INR 1.03; PROTIME 13.6 Sec (11.9-14.9); PT RATIO 1.1
[2018-03-17 16:39] LABS: PARTIAL THROMBOPLASTIN TIME 27.3 Sec (23.0-35.0)
[2018-03-17] MEDS: CEFTRIAXONE 1 GM/50 ML (PMX) 50 ML IVPB (17:00)
[2018-03-17] MEDS: metroNIDAZOLE 500 MG/NS (PMX) 100 ML IVPB (17:00)
[2018-03-17 17:26] LABS: ADD UMIC YES; UR ASCORBIC ACID 20 mg/dL (NEGATIVE); UR BILIRUBIN (Dip) NEGATIVE (NEGATIVE); UR BLOOD (Dip) 2+ mg/dL (NEGATIVE); UR CLARITY CLEAR (CLEAR); UR COLOR YELLOW (YELLOW); UR GLUCOSE (Dip) NEGATIVE (NEGATIVE); UR KETONES (Dip) TRACE mg/dL (NEGATIVE); UR LEUKOCYTE ESTERASE (Dip) TRACE Leu/ul (NEGATIVE); UR MUCUS FEW /HPF (NONE SEEN); UR NITRITE (Dip) NEGATIVE (NEGATIVE); UR RBC 13 /HPF (0-5); UR SPECIFIC GRAVITY (Dip) 1.009 (1.003-1.030); UR TOTAL PROTEIN (Dip) NEGATIVE (NEGATIVE); UR UROBILINOGEN (Dip) NEGATIVE (NEGATIVE); UR WBC 0 /HPF (0-5)
[2018-03-17] MEDS ORDERED: ONDANSETRON 4 MG INJ IV (19:00)
[2018-03-17] MEDS ORDERED: DOCUSATE SODIUM 100 MG CAP PO (19:00)
[2018-03-17] MEDS ORDERED: morphine 2 MG INJ IV (19:00)
[2018-03-17] MEDS ORDERED: ACETAMINOPHEN 325 MG TAB PO (19:00)
[2018-03-17] MEDS ORDERED: NACL 0.9% 3 ML SYG IV (19:00)
[2018-03-17] MEDS ORDERED: ZOLPIDEM 5 MG TAB PO (19:00)
[2018-03-17] MEDS ORDERED: DEXTROSE 50% 50 ML SYRINGE IV ×2 (19:30)
[2018-03-17] MEDS ORDERED: GLUCAGON 1 MG INJ IM (19:30)
[2018-03-17] MEDS ORDERED: GLUCOSE GEL 15 GRAM TUBE PO ×2 (19:30)
[2018-03-17] MEDS ORDERED: GLUCOSE GEL 15 GRAM TUBE BUCCAL (19:30)
[2018-03-17] MEDS: INSULIN ASPART [NOVOLOG] 3 ML PEN SC (21:00)
[2018-03-17] MEDS: HYDROCODONE/APAP (5/325) TAB PO (21:08)
[2018-03-17] MEDS: METOPROLOL 50 MG TAB PO (21:09)
[2018-03-18] MEDS: PIPER-TAZO 3.375 GM IV (PMX) 100 ML IVPB ×2 (00:52→05:39)
[2018-03-18] MEDS: ACCU-CHEK XX (02:00)
[2018-03-18] MEDS: HYDROCODONE/APAP (5/325) TAB PO ×3 (03:24→21:33)
[2018-03-18 07:17] LABS: ADD MAN DIFF? NO
[2018-03-18 07:24] LABS: WHITE BLOOD COUNT 9.2 10^3/ul (4.8-10.8)
[2018-03-18 07:24] LABS: BASOPHILS % 0.3 % (0.0-2.0); EOSINOPHILS % 0.2 % (0.0-7.0); HEMATOCRIT 35.7 % (37.0-47.0); HEMOGLOBIN 12.2 g/dl (12.0-16.0); LYMPHOCYTES # 1.3 10^3/ul (0.8-2.9); LYMPHOCYTES % 14.1 % (15.0-51.0); MEAN CORPUSCULAR HEMOGLOBIN 33.3 pg (29.0-33.0); MEAN CORPUSCULAR HGB CONC 34.2 g/dl (32.0-37.0); MEAN CORPUSCULAR VOLUME 97.5 fl (82.0-101.0); MEAN PLATELET VOLUME 10.5 fl (7.4-10.4); MONOCYTE # 0.8 10^3/ul (0.3-0.9); MONOCYTES % 9.1 % (0.0-11.0); PLATELET COUNT 125 10^3/UL (140-415); RED BLOOD COUNT 3.66 10^6/ul (4.20-5.40)
[2018-03-18 07:33] LABS: HEMOGLOBIN A1C 5.6 % (0-5.9)
[2018-03-18 07:52] LABS: ANION GAP 7 (5-13); BLOOD UREA NITROGEN 13 mg/dl (7-20); CALCIUM 8.7 mg/dl (8.4-10.2); CARBON DIOXIDE 25 mmol/L (21-31); CHLORIDE 100 mmol/L (97-110); CREATININE 0.62 mg/dl (0.44-1.00); GLUCOSE 150 mg/dl (70-220); MAGNESIUM 1.9 mg/dl (1.7-2.5); POTASSIUM 3.6 mmol/L (3.5-5.1); SODIUM 132 mmol/L (135-144)
[2018-03-18] MEDS: INSULIN ASPART [NOVOLOG] 3 ML PEN SC ×4 (07:56→21:00)
[2018-03-18] MEDS: LOSARTAN 50 MG TAB PO (09:28)
[2018-03-18] MEDS: POTASSIUM CHLORIDE (SR) 10 MEQ TAB PO (09:28)
[2018-03-18] MEDS: METOPROLOL 50 MG TAB PO ×2 (09:28→21:25)
[2018-03-18] MEDS: CIPROFLOXACIN 400MG/D5W 200 ML IVPB ×2 (12:26→21:25)
[2018-03-18] MEDS: DIGOXIN 0.25 MG TAB PO (13:00)
[2018-03-18] MEDS: metroNIDAZOLE 500 MG/NS (PMX) 100 ML IVPB ×2 (13:41→21:25)
[2018-03-18] MEDS: morphine SULFATE/PF (2 MG/2 ML) SYG IV (13:41)
[2018-03-19] MEDS: ACCU-CHEK XX (01:25)
[2018-03-19] MEDS: HYDROCODONE/APAP (5/325) TAB PO (05:33)
[2018-03-19] MEDS: metroNIDAZOLE 500 MG/NS (PMX) 100 ML IVPB (05:33)
[2018-03-19 06:25] LABS: ADD MAN DIFF? NO
[2018-03-19 06:35] LABS: BASOPHILS % 0.2 % (0.0-2.0); EOSINOPHILS # 0.1 10^3/ul (0.0-0.5); HEMATOCRIT 36.1 % (37.0-47.0); LYMPHOCYTES # 1.7 10^3/ul (0.8-2.9); MEAN CORPUSCULAR HEMOGLOBIN 32.8 pg (29.0-33.0); MEAN CORPUSCULAR HGB CONC 33.2 g/dl (32.0-37.0); MEAN CORPUSCULAR VOLUME 98.6 fl (82.0-101.0); MEAN PLATELET VOLUME 10.3 fl (7.4-10.4); MONOCYTE # 0.9 10^3/ul (0.3-0.9); MONOCYTES % 10.5 % (0.0-11.0); NEUTROPHIL # 6.2 10^3/ul (1.6-7.5); NEUTROPHILS % 68.9 % (39.0-77.0); PLATELET COUNT 129 10^3/UL (140-415); RED BLOOD COUNT 3.66 10^6/ul (4.20-5.40)
[2018-03-19 07:04] LABS: ANION GAP 8 (5-13); BLOOD UREA NITROGEN 9 mg/dl (7-20); CALCIUM 8.9 mg/dl (8.4-10.2); CARBON DIOXIDE 29 mmol/L (21-31); CHLORIDE 100 mmol/L (97-110); CREATININE 0.67 mg/dl (0.44-1.00); GLUCOSE 109 mg/dl (70-220); MAGNESIUM 1.9 mg/dl (1.7-2.5); PHOSPHORUS 2.9 mg/dl (2.5-4.9); POTASSIUM 3.9 mmol/L (3.5-5.1); SODIUM 137 mmol/L (135-144)
[2018-03-19] MEDS: INSULIN ASPART [NOVOLOG] 3 ML PEN SC (08:00)
[2018-03-19] MEDS: POTASSIUM CHLORIDE (SR) 10 MEQ TAB PO (08:16)
[2018-03-19] MEDS: METOPROLOL 50 MG TAB PO (08:17)
[2018-03-19] MEDS: LOSARTAN 50 MG TAB PO (08:17)
[2018-03-19] MEDS: CIPROFLOXACIN 400MG/D5W 200 ML IVPB (09:00)
== END 2018-03-19 12:00 | disposition home or self-care (01) | DRG 392 ==
LOC: E/R 13:54 → PP2 17:27
DX: K57.92 Diverticulitis of intestine, part unspecified, without perforation or abscess without bleeding (principal); I10 Essential (primary) hypertension; E11.9 Type 2 diabetes mellitus without complications
CPT/HCPCS: 36415; 74176; 80048; 80053; 81001; 82962; 83036; 83605; 83690; 83735; 84100; 85025; 85610; 85730; 87040; 87086; 96374; 99285-25